=== PATIENT | female | born 1985 | race Caucasian/White ===

== ENCOUNTER 2021-02-06 11:24 | Emergency (ER) | payer OTHER, MEDICARE ==
[~2021-02-06] VITALS: Ht 157.5 cm; Wt 55.5 kg
[~2021-02-06 11:24] MED LIST: 5-HT1CAP PO; CLAR250T22; COQ150CH PO; CYMB1CAP5 PO; HYDR-4467; MAG100TA PO; MELA3TAB49 PO; MINO100C80; NACCAP PO; NYST5000; OILCAP PO; PROBCAP14 PO; PROG1CAP9; REME15TA2 PO; VITA100065 PO; VITA100T98 PO; VITATAB74 PO; VITMTA PO; ZINC30CA PO
[2021-02-06] MEDS ORDERED: VITA100020 PO (12:49)
--- OUTSIDE RECORDS SUMMARY | 2021-02-06 13:38 | CCD ---
Author Author [facility] Organization [facility] Address Unknown Phone Unavailable Care Team Providers Care Bias Machine Operator Helper Name Role Phone GONZALEZ, MIKE IGNACIO COUNSELING AIDE Unavailable Unavailable GONZALEZ, MIKE IGNACIO COUNSELING AIDE Unavailable Unavailable GONZALEZ, MIKE IGNACIO COUNSELING AIDE Unavailable Unavailable GONZALEZ, MIKE IGNACIO COUNSELING AIDE Unavailable Unavailable GONZALEZ, MIKE IGNACIO COUNSELING AIDE Unavailable Unavailable GONZALEZ, MIKE IGNACIO COUNSELING AIDE Unavailable Unavailable GONZALEZ, MIKE IGNACIO COUNSELING AIDE Unavailable Unavailable GONZALEZ, MIKE IGNACIO COUNSELING AIDE Unavailable Unavailable GONZALEZ, MIKE IGNACIO COUNSELING AIDE Unavailable Unavailable GONZALEZ, MIKE IGNACIO COUNSELING AIDE Unavailable Unavailable GONZALEZ, MIKE IGNACIO COUNSELING AIDE Unavailable Unavailable GONZALEZ, MIKE IGNACIO COUNSELING AIDE Unavailable Unavailable GONZALEZ, MIKE IGNACIO COUNSELING AIDE Unavailable Unavailable GONZALEZ, MIKE IGNACIO COUNSELING AIDE Unavailable Unavailable GONZALEZ, MIKE IGNACIO COUNSELING AIDE Unavailable Unavailable GONZALEZ, MIKE IGNACIO COUNSELING AIDE Unavailable Unavailable GONZALEZ, MIKE IGNACIO COUNSELING AIDE Unavailable Unavailable GONZALEZ, MIKE IGNACIO COUNSELING AIDE Unavailable Unavailable GONZALEZ, MIKE IGNACIO COUNSELING AIDE Unavailable Unavailable GONZALEZ, MIKE IGNACIO COUNSELING AIDE Unavailable Unavailable GONZALEZ, MIKE IGNACIO COUNSELING AIDE Unavailable Unavailable GONZALEZ, MIKE IGNACIO COUNSELING AIDE Unavailable Unavailable GONZALEZ, MIKE IGNACIO COUNSELING AIDE Unavailable Unavailable Re-disclosure Warning The records that you are about to access may contain information from federally-assisted alcohol or drug abuse programs. If such information is present, then the following federally mandated warning applies: This information has been disclosed to you from records protected by federal confidentiality rules (42 CFR part 2). The federal rules prohibit you from making any further disclosure of this information unless further disclosure is expressly permitted by the written consent of the person to whom it pertains or as otherwise permitted by 42 CFR part 2. A general authorization for the release of medical or other information is NOT sufficient for this purpose. The Federal rules restrict any use of the information to criminally investigate or prosecute any alcohol or drug abuse patient.The records that you are about to access may contain highly sensitive health information, the redisclosure of which is protected by Article 27-F of the [facility] Public Health law. If you continue you may have access to information: Regarding HIV / AIDS; Provided by facilities licensed or operated by the [facility] Office of Mental Health; or Provided by the [facility] Office for People With Developmental Disabilities. If such information is present, then the following [facility] mandated warning applies: This information has been disclosed to you from confidential records which are protected by state law. State law prohibits you from making any further disclosure of this information without the specific written consent of the person to whom it pertains, or as otherwise permitted by law. Any unauthorized further disclosure in violation of state law may result in a fine or shelter sentence or both. A general authorization for the release of medical or other information is NOT sufficient authorization for further disc losure. Encounters Encounter Providers Location Date Indications Data Source(s ) Outpatient Attender: IGNACIO GONZALEZ NP Family Practice 10/05/2020 11 :00:00 AM EDT [facility] ([facility]) Outpatient Attender: IGNACIO GONZALEZ NP 021 10:54:00 AM EDT - 10/05/2020 10:54:00 AM EDT [facility] Medications No Information Insurance Providers Payer name Policy type / Coverage type Policy ID Covered alliance party ID Covered alliance party's relationship to shen Policy [place] Plan Information [facility] [id number] [facility] [id number] MEDICARE [id number] SP [id number] [facility] [id number] 01 [id number] MEDICARE PART A [facility] [id number] Problems, Conditions, and Diagnoses No Information Surgeries/Procedures Procedure Description Date Indications Data Source(s) INITIAL PREVENTIVE MEDICINE NEW PT AGE [id number] 2020 12:00:00 AM EDT [facility] ([facility]) Results ID Date Data Source [id number] 10/05/2020 11:30:00 AM EDT [facility] ([facility]) Name Value Range Interpretation Code Description Data Rosy rce(s) Supporting Document(s) Cytology report of Cervical or vaginal smear or scrapi ng Cyto stain.thin prep Laboratory test result [facility] ([facility]) Procedure Social History No Information Vital Signs ID Date Data Source UNK Name Value Range Interpretation Code Description Data Source(s) Systolic blood pressure 110 mm[Hg] 110 mm[Hg] [facility] ([facility]) Diastolic blood pressure 72 mm[Hg] 72 mm[Hg] [facility] Heart rate 91 /min 91 /min [facility] ([facility]) Body temperature 97.5 [degF] 97.5 [degF] [facility] ([facility]) Oxygen saturation in Arterial blood by Pulse oximetry 99 % 99 % [facility] ([facility]) Body weight 123.00 [lb_av] 123.00 [lb_av] [facility] ([facility]) Body weight 55.793 kg 55.793 kg [facility] ([facility]) Body height 62 [in_i] 62 [in_i] [facility] ([facility]) 5'2" Body mass index (BMI) [Ratio] 22.5 kg/m2 22.5 k g/m2 [facility] ([facility]) Body surface area Derived from formula 1.55 m2 1.55 m2 [facility] ([facility])
[2021-02-06 13:52] VITALS: BP 132/72
== END 2021-02-06 14:03 | disposition home or self-care (01) ==
LOC: M ED 11:24 → EDBD 11:24 → M ED 14:03
DX: Z04.1 Encounter for examination and observation following transport accident (principal); M79.7 Fibromyalgia; Z79.899 Other long term (current) drug therapy; Z88.0 Allergy status to penicillin; Z88.5 Allergy status to narcotic agent; Z88.8 Allergy status to other drugs, medicaments and biological substances; F17.210 Nicotine dependence, cigarettes, uncomplicated

== ENCOUNTER 2021-03-14 09:25 | Outpatient (CLI) | payer MEDICARE, OTHER ==
[~2021-03-14] VITALS: Ht 157.5 cm; Wt 59.0 kg
[~2021-03-14 09:25] MED LIST changes: +ALBUTEROL 90 MCG/ACT 8GM HFA INHALER INH PRN; +ALBUTEROL SULFATE 2.5 MG/0.5 ML INH NEB SOLN INH PRN; +EPINEPHrine INJ 1 MG/ML 1ML AMP IM PRN; +NS 1,000 ML IV SCH; +VITA100020 PO; +diphenhydrAMINE 50MG/ML VIAL (J1200) IV PRN; +methylPREDNISolone 125MG 2ML VIAL IV PRN
[2021-03-14] MEDS ORDERED: CASIRIVIMAB (REGN10933) 600 MG, IMDEVIMAB (REGN10987) 600 MG in NS 250 ML IV ONE (09:30)
[2021-03-14 09:42] VITALS: BP 106/59
[2021-03-14 10:12] VITALS: BP 100/56
[2021-03-14 10:42] VITALS: BP 109/51
[2021-03-14 11:42] VITALS: BP 106/59
== END 2021-03-14 11:42 | disposition home or self-care (01) ==
LOC: M OPCLI4PR 09:25
PROVIDERS: ATTEND Family Medicine
DX: U07.1 COVID-19 (principal); Z88.1 Allergy status to other antibiotic agents; Z88.5 Allergy status to narcotic agent

== ENCOUNTER → 2021-08-10 | Outpatient (CLI) | payer MEDICARE, OTHER ==
[~2021-08-10] MED LIST changes: -ALBUTEROL 90 MCG/ACT 8GM HFA INHALER INH PRN; -ALBUTEROL SULFATE 2.5 MG/0.5 ML INH NEB SOLN INH PRN; -EPINEPHrine INJ 1 MG/ML 1ML AMP IM PRN; -NS 1,000 ML IV SCH; -diphenhydrAMINE 50MG/ML VIAL (J1200) IV PRN; -methylPREDNISolone 125MG 2ML VIAL IV PRN
== END ==
LOC: M RAD 07:39
DX: R10.11 Right upper quadrant pain (principal); R11.0 Nausea; R14.0 Abdominal distension (gaseous)
CPT/HCPCS: 78227; A9537

== ENCOUNTER → 2022-02-14 | Outpatient (CLI) | payer MEDICARE, OTHER ==
[~2022-02-14] MED LIST changes: +BLAC40CA PO; +CELE1CAP9 PO; +CYAN500T14 PO; +FAMO40TA3; +FOLI400T13 PO; -HYDR-4467; +HYDR-4467 PO; +LIDOCAINE 1% MDV 20ML VIAL As Ordered ONE; +LINZ145C; -MINO100C80; +MINO100C80 PO; +PANT40TA29 PO; -PROG1CAP9; +PROG1CAP9 TOP; +QUER500C PO; +TRAM50TA2 PO; +VALA1TAB5 PO; +VALT500T PO; +[UNRECOGNIZED DRUG - OTHER] PO
[2022-02-14 12:15] VITALS: BP 115/58
[2022-02-14 12:35] LABS: EOS % 0.3 % (0.0-3.0); HEMATOCRIT 37.2 % (36.0-47.0); HEMOGLOBIN 12.7 g/dl (12.0-15.5); LYMPH # 1.6 10^3/uL (1.5-5.0); LYMPH % 40.6 % (24.0-44.0); MEAN CORPUSCULAR HGB CONC 34.1 g/dl (32.0-36.5); MEAN CORPUSCULAR VOLUME 93.7 fl (80.0-96.0); MONO # 0.4 10^3/uL (0.0-0.8); MONO % 9.6 % (2.0-8.0); NEUTROPHILS # 1.9 10^3/uL (1.5-8.5); NEUTROPHILS % 48.2 % (36.0-66.0); PLATELET COUNT, AUTOMATED 214 10^3/uL (150-450); RED BLOOD COUNT 3.97 10^6/uL (4.00-5.40); WHITE BLOOD COUNT 3.8 10^3/uL (4.0-10.0)
== END ==
LOC: M IRPRO 12:02
PROVIDERS: ATTEND Nurse Practitioner
DX: D72.819 Decreased white blood cell count, unspecified (principal)

== ENCOUNTER → 2022-11-13 | Outpatient (CLI) | payer MEDICARE, OTHER ==
[~2022-11-13] MED LIST changes: -LIDOCAINE 1% MDV 20ML VIAL As Ordered ONE; +MIRT-84 PO; -REME15TA2 PO
[2022-11-13 14:45] LABS: HEMATOCRIT 39.1 % (36.0-47.0); HEMOGLOBIN 13.1 g/dl (12.0-15.5); MEAN CORPUSCULAR HEMOGLOBIN 29.8 pg (27.0-33.0); MEAN CORPUSCULAR HGB CONC 33.5 g/dl (32.0-36.5); MEAN CORPUSCULAR VOLUME 89.1 fl (80.0-96.0); PLATELET COUNT, AUTOMATED 245 10^3/uL (150-450); RED BLOOD COUNT 4.39 10^6/uL (4.00-5.40); WHITE BLOOD COUNT 4.8 10^3/uL (4.0-10.0)
[2022-11-13 15:39] LABS: HIV 1&2 SCREEN NEGATIVE (NEGATIVE)
[2022-11-13 15:53] LABS: GC DNA AMPLIFICATION NEGATIVE (NEGATIVE)
== END ==
LOC: M PLALAB 10:48
PROVIDERS: ATTEND Advanced Practice Midwife
DX: Z34.81 Encounter for supervision of other normal pregnancy, first trimester (principal); Z79.899 Other long term (current) drug therapy

== ENCOUNTER → 2022-12-12 | Outpatient (CLI) | payer MEDICARE, OTHER ==
[~2022-12-12] MED LIST changes: +DOXY1TAB59; +ONDA-83
== END ==
LOC: M PLALAB 11:39
PROVIDERS: ATTEND Advanced Practice Midwife
DX: Z34.80 Encounter for supervision of other normal pregnancy, unspecified trimester (principal)